=== PATIENT | female | born 1945 | race Two or more races ===

== ENCOUNTER → 2019-01-18 | Day surgery (SDC) | payer MEDICARE, MEDICAID ==
[~2019-01-18] MED LIST: ASPIRIN 325 MG TABLET ONE; BIVALIRUDIN INJ 250 MG VIAL IV ONE; CLOPIDOGREL BISULFATE 300 MG TABLET ONE; DIAZEPAM 5 MG TABLET ONE; DIPHENHYDRAMINE HCL 25 MG CAPSULE ONE; FENTANYL CITRATE INJ/PF 100 MCG/2 ML AMPUL ONE; HEPARIN SOD (PORCINE) 1,000 UNIT/ML 10 ML VIAL ONE; HEPARIN SODIUM,PORCINE/NS/PF 2,000 UNIT/1,000 ML RTUINJ IV ONE; LIDOCAINE 1% INJ-PF (10 MG/ML) 30 ML SDV ONE; MIDAZOLAM 2 MG/2 ML INJ ONE; NITROGLYCERIN/D5W 50 MG/250 ML RTUINJ IV ONE; RADIAL COCKTAIL SYRINGE 10 ML IV PRN
--- NOTE | 2019-01-18 11:34 | Operative Report ---
Operative Report DATE OF SURGERY: 01/18/19 PREOPERATIVE DIAGNOSIS: Unstable angina POSTOPERATIVE DIAGNOSIS: Coronary artery disease unstable angina. Stent implantation LAD OPERATION: Left heart catheterization coronary angiography left ventriculography drug-eluting stent implantation in the LAD SURGEON: JENSEN URBINA ANESTHESIA: Moderate Sedation COMPLICATIONS: None PROCEDURE: After informed consent was obtained the patient was brought to the cardiac catheterization lab and the right wrist was prepared in usual sterile and draped manner. Hemodynamic access was gained using micropuncture technique and the patient was anticoagulated with heparin. An intra-arterial cocktail of verapamil and lidocaine was administered. Selective coronary angiography was pe rformed with a Damar catheter. This was exchanged with pigtail catheter and left ventriculography was performed in standard WARREN projection. The patient left the Cardiac Catheterization Lab in stable condition, with intact distal pulses and no chest pain or other complications from the procedure. Conscious sedation was initiated, monitored, and maintained during the procedure with the start time of 1007 and a completion time of 1112 for a total procedure time of 65 units. A total of 1 milligrams of Versed and 75 milligrams and fentanyl were used for conscious sedation. HEMODYNAMIC DATA: Aortic pressure at the beginning the case is 120/50 post ventriculography LV pressure is 138/20 1 aortic pressure on pullback is 148/59 there is a minimal gradient across the aortic valve CORONARY ANATOMY: [] ANGIOGRAPHY: [] VENTRICULOGRAPHY: Ventriculography is performed in the WARREN projection and demonstrates [well-preserved left ventricular function with an EF greater than 65% there are no regional wall motion abnormalities mitral regurgitation is not seen the ascending aorta appears mildly dilated] . CORONARY ANGIOGRAPHY: [Moderate calcification in most distributions with relatively small diabetic appearing vessels] LEFT MAIN: Normal [] LEFT ANTERIOR DESCENDING: [Transapical with a moderate size bifurcating diagonal in the mid vessel the LAD at the first septal table cover folder has an ecce ntric ulcerated 70% stenosis followed by a 90% stenosis at the bifurcation of the LAD and diagonal at a calcified location. The ongoing LAD and diagonal vessels have luminal irregularities without critical or focal narrowings] CIRCUMFLEX CORONARY: [The circumflex has a 50 to 60% stenosis at the first obtuse marginal the first obtuse marginal is a moderate vessel with a 30% stenosis] RIGHT CORONARY ARTERY: [The right coronary artery has a long area of concentric disease and angiographically it appears to be 40 to 60% the right coronary artery was dominant supplying the PDA and posterolateral branches luminal irregularities are seen in other distributions but no critical or focal narrowings are seen Coronary intervention: Patient received Angiomax and several catheters were used to engage the left main ultimately an XB 3 0 was used to engage the left main and an intuition 014 guidewire was used to cross the tandem lesions a 2 to 5 x 22 mm drug-eluting Connie Medtronic stent was deployed this did not completely cover the proximal stenosis this was deployed to nominal inflation pressures a second two 5 x 12 mm connie drug-eluting stent was deployed proximally this adequately covered the entire remainder of the disease segment in the proximal and midportion of the LAD. This was then postdilated with a 3 oh 15 noncompliant balloon. The catheter guidewires and balloons were removed and angiography was performed in orthogonal projections demonstrating excellent stent apposition no evidence of distal embolization dissection or side branch loss and the procedure was terminated ] IMPRESSION: 1. Normal left ventricular function 2. Nonsignificant valvular heart disease 3. High-grade tandem LAD lesions with successful drug-eluting stent implantations in the proximal and midportion of the LAD 4. Moderate disease in the circumflex and mid right coronary artery Recommendation: 1 dual antiplatelet therapy for a year 2. Stress perfusion imaging in order to determine the significance of the circumflex and right coronary artery stenosis.
[2019-01-18 16:04] VITALS: BP 158/78
--- NOTE | 2019-01-18 17:18 | EKG REPORT ---
SEVERITY:- ABNORMAL ECG - SINUS RHYTHM LEFT VENTRICULAR HYPERTROPHY : Confirmed by: Andrea Curry MD 18-Jan-2019 17:17:40
== END ==
LOC: CCL 08:00
PROVIDERS: ATTEND Internal Medicine Cardiovascular Disease
DX: I10 Essential (primary) hypertension (principal); E78.2 Mixed hyperlipidemia; E11.9 Type 2 diabetes mellitus without complications; R07.9 Chest pain, unspecified; I73.9 Peripheral vascular disease, unspecified; Z79.4 Long term (current) use of insulin; Z79.899 Other long term (current) drug therapy; K21.9 Gastro-esophageal reflux disease without esophagitis
CPT/HCPCS: 82962; 93458; 92928; 93005; 93010; A9270 ×4; J2250; J3010; J1644 ×2; J3490 ×5; J0583; C1877

== ENCOUNTER → 2019-02-07 | Outpatient (CLI) | payer MEDICARE, MEDICAID ==
--- NOTE | 2019-02-07 12:05 | RADIOLOGY REPORT (SQ) ---
EXAM DESCRIPTION: VENOUS UNILATERAL LOWER COMPLETED DATE/TIME: 02/07/2019 11:42 am REASON FOR STUDY: LLE SWELLING I82.409 ACUTE EMBOLISM AND THOMBOS UNSP DEEP VN UNSP LOWER E COMPARISON: None. TECHNIQUE: Dynamic and static batres scale and color images acquired of the left leg venous system. Se lected spectral images acquired with additional compression and augmentation maneuvers. The contralat eral common femoral vein and saphenofemoral junction were also imaged. Images stored on PACS. LIMITATIONS: None. FINDINGS: COMMON FEMORAL: Normal phasicity, compression and augmentation. No visualized echogenic ma terial on batres scale. No defects on color images. FEMORAL: Normal compression and augmentation. No visualized echogenic material on batres scale. No defe cts on color images. POPLITEAL: Normal compression, augmentation. No visualized echogenic material on batres scale. No defec ts on color images. CALF VESSELS: Normal compression, augmentation. No visualized echogenic material on batres scale. No de fects on color images. GSV and SSV: Normal compression, augmentation. No visualized echogenic material on batres scale. No def ects on color images. ANY DEEP VENOUS INSUFFICIENCY: Not evaluated. 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 OTHER: No other significant finding. CONTRALATERAL COMMON FEMORAL VEIN AND SAPHENOFEMORAL JUNCTION: Normal phasicity, compression and augmentation. No visualized echogenic material on batres scale. No de fects on color images. IMPRESSION: Popliteal cyst. No evidence of DVT or SVT in the left lower extremity. TECHNICAL DOCUMENTATION: JOB ID: [id number] [employer]- All Rights Reserved Reading location - IP/workstation name: [email or web address]
== END ==
LOC: SP 10:50
PROVIDERS: ATTEND Podiatrist Foot Surgery
DX: I82.409 Acute embolism and thrombosis of unspecified deep veins of unspecified lower extremity (principal)
CPT/HCPCS: 93971

== ENCOUNTER → 2019-02-16 | Outpatient (CLI) | payer MEDICARE, MEDICAID ==
--- NOTE | 2019-02-16 12:40 | RADIOLOGY REPORT (SQ) ---
EXAM DESCRIPTION: ARTERIAL LOWER EXTREM BILAT COMPLETED DATE/TIME: 02/16/2019 12:20 pm REASON FOR STUDY: PVD I73.9 PERIPHERAL VASCULAR DISEASE, UNSPECIFIED COMPARISON: None. TECHNIQUE: Dynamic and static batres scale and color images acquired of the lower extremity arteries. Additional selected spectral images recorded. ABIs recorded. LIMITATIONS: None. FINDINGS: RIGHT LEG: ABIS: Normal, over 1.0. INFLOW ARTERIES: Normal, no obstruction evident. FEMORAL ARTERIES:Multiphasic waveforms. Normal, no velocity elevation to suggest focal stenosis. Norm al color Doppler evaluation. No aneurysm. POPLITEAL ARTERY:Multiphasic waveforms. Normal, no velocity elevation to suggest focal stenosis. Norm al color Doppler evaluation. No aneurysm. PATENT TIBIOPERONEAL TRUNK AND 3 VESSEL RUNOFF: Yes, normal vessels. TBI: Not performed. OTHER: Digit waveforms are normal in appearance. LEFT LEG: ABIS: Normal, over 1.0. INFLOW ARTERIES: Normal, no obstruction evident. FEMORAL ARTERIES:Multiphasic waveforms. Normal, no velocity elevation to suggest focal stenosis. Norm al color Doppler evaluation. No aneurysm. POPLITEAL ARTERY:Multiphasic waveforms. Normal, no velocity elevation to suggest focal stenosis. Norm al color Doppler evaluation. No aneurysm. PATENT TIBIOPERONEAL TRUNK AND 3 VESSEL RUNOFF: Yes, normal vessels. TBI: Not performed. OTHER: Digit waveforms are normal in appearance. IMPRESSION: NORMAL BILATERAL LOWER EXTREMITY ARTERIAL DOPPLER WITH ABIs. COMMENT: [facility] NORMAL: Greater than 1.0 MINIMAL DISEASE: 0.9 to 1.0 CLAUDICATION: 0.5 to 0.9 SEVERE ARTERIAL DISEASE: Less than 0.5 [facility] NORMAL: Greater than 1.0 (1.2 If Heavy Calcifications) NORMAL TO MILD ISCHEMIA: 0.8 to 1.0 MODERATE ISCHEMIA: 0.4 to 0.8 SEVERE ISCHEMIA: Less than 0.4 TECHNICAL DOCUMENTATION: JOB ID: [id number] [employer]- All Rights Reserved Reading location - IP/workstation name: [email or web address]
== END ==
LOC: RAD 10:51
PROVIDERS: ATTEND Podiatrist Foot Surgery
DX: I73.9 Peripheral vascular disease, unspecified (principal)
CPT/HCPCS: 93922; 93925